=== PATIENT | male | born 1965 | race Caucasian/White ===

== ENCOUNTER 2017-03-13 11:55 | Emergency (ER) | payer OTHER ==
[~2017-03-13] VITALS: Ht 182.9 cm; Wt 159.7 kg
[~2017-03-13 11:55] MED LIST: ASPIR 8181 MG PO; AUGMENTIN 875875 MG PO; FISH OIL CONCEN1 SGL PO; GLIPIZIDE10 MG PO; HYGROTON 25MG T25 MG PO; IBU800 MG PO; KEFLEX500 MG PO; LYRICA75 MG PO; METFORMIN1000 MG PO; PERCOCET 325 MG1 TA2 PO; PRAVASTATIN SOD20 MG PO; TRAMADOL HYDRO200 MG PO; VICODIN5-300 PO; [UNRECOGNIZED DRUG - OTHER] PO
[2017-03-13] MEDS ORDERED: IBUPROFEN800 M1 PO (13:21)
[2017-03-13] MEDS ORDERED: METFORMIN HCL1000 M1 PO (13:21)
[2017-03-13] MEDS ORDERED: GLIPIZIDE10 M2 PO (13:21)
[2017-03-13] MEDS ORDERED: CHLORTHALIDONE25 M1 PO (13:21)
[2017-03-13] MEDS ORDERED: JARDIANCE10 M1 PO (13:22)
[2017-03-13] MEDS ORDERED: PRAVASTATIN SOD40 M2 PO (13:22)
[2017-03-13] MEDS ORDERED: ASPIRIN EC81 M1 PO (13:22)
[2017-03-13] MEDS ORDERED: LYRICA75 M1 PO (13:22)
[2017-03-13] MEDS ORDERED: FISH OIL 1,0001 EAC4 PO (13:23)
[2017-03-13] MEDS ORDERED: CLEOCIN HCL150 M1 PO (13:41)
[2017-03-13] MEDS ORDERED: VICODIN 5-3001 EACH PO (13:41)
--- NOTE | 2017-03-13 13:42 | ED SKIN/ALLERGY COMPLAINT ---
History of Present Illness General Chief Complaint: Skin Rash/ Abcess Stated Complaint: ABCESS ON BACK Source: patient, old records Exam Limitations: no limitations Vital Signs & Intake/Output Vital Signs & Intake/Output Vital Signs Date Time Temp Pulse Resp B/P Pulse O2 O2 Flow FiO2 Ox Delivery Rate 03/13 1446 98.0 82 18 132/88 98 Room Air 03/13 1208 97.6 84 16 125/85 97 Room Air Allergies Coded Allergies: cheese (YELLOW CHEESE - NAUSEA 03/13/17) lovastatin (CRAMPS 03/13/17) simvastatin (CRAMPS 03/13/17) Reconcile Medications Aspirin (Ecotrin*) 81 MG TABLET.DR 1 TAB PO DAILY HEART/BLOOD (Reported) Chlorthalidone 25 MG TABLET 1 TAB PO DAILY BP/DIURETIC (Reported) Clindamycin HCl (Cleocin HCl) 150 MG CAPSULE 1 CAP PO TID abscess Empagliflozin (Jardiance) 10 MG TABLET 1 TAB PO DAILY DM (Reported) Glipizide 10 MG TABLET 2 TAB PO BID DM (Reported) Hydrocodone/Acetaminophen (Vicodin 5-300 MG Tablet) 5 MG-300 MG TABLET 1-2 TAB PO Q6P severe pain Ibuprofen 800 MG TABLET 1 TAB PO Q8H PRN PAIN/INFLAMMATION (Reported) Metformin HCl 1,000 MG TABLET 1 TAB PO BID DM (Reported) [place]-3 Fatty Acids/Fish Oil (Fish Oil 1,000 MG Softgel) (Unknown Strength) CAPSULE (Unknown Dose) PO DAILY SUPPLEMENT (Reported) Pravastatin Sodium 40 MG TABLET 1 TAB PO QPM CHOLESTEROL (Reported) Pregabalin (Lyrica) 75 MG CAPSULE 1 CAP PO BID NEVRE PAIN (Reported) Triage Note: PT STATES HE HAS AN ABCESS ON HIS BACK THAT HE NOTICED 4 DAYS. PT STATES HE WAS TAKING KEFLEX THAT HE HAD AT HOME AND STATES IT ISN'T GETTING BETTER. Triage Nurses Notes Reviewed? yes Onset: Last week Duration: day(s):, constant, continues in ED Timing: recent history Severity: moderate Location: torso Possible Factors: no cause identified No Modifying Factors: none Associated Symptoms: change in skin texture, rash, swelling/mass/lumps HPI: About one week prior to admission patient complains of right mid back abscess that has not responded to antibiotics for one day prior to admission. He denies fever chills nausea vomiting diarrhea abdominal pain chest pain shortness breath headache dysuria bleeding. Past History Travel History Traveled to [place] past 21 day No Medical History Any Pertinent Medical History? see below for history Neurological: NONE EENT: NONE Cardiovascular: hypertension, HIGH CHOLESTEROL DVT Respiratory: NONE Gastrointestinal: NONE Hepatic: NONE Renal: NONE Musculoskeletal: NONE Psychiatric: NONE Endocrine: diabetes Blood Disorders: NONE Cancer(s): NONE METEOROLOGICAL AIDE/Reproductive: NONE History of MRSA: No History of VRE: No History of CDIFF: No Pneumonia Vaccine: 02/01/14 Surgical History Surgical History: RIGHT FOOT SURGERY TOE AMPUTATIONS Psychosocial History Who do you live with Sister Services at Home None What is your primary language P[place] Tobacco Use: Never used ETOH Use: denies use Illicit Drug Use: denies illicit drug use Family History Family History, If Any: MOTHER FH: diabetes mellitus aunty FH: diabetes mellitus Hx Contributory? No Review of Systems Review of Systems Constitutional: Reports: no symptoms. EENTM: Reports: no symptoms. Respiratory: Reports: no symptoms. Cardiovascular: Reports: no symptoms. GI: Reports: no symptoms. Genitourinary: Reports: no symptoms. Musculoskeletal: Reports: no symptoms. Skin: Reports: see HPI, rash. Neurological/Psychological: Reports: no symptoms. Hematologic/Endocrine: Reports: no symptoms. Immunologic/Allergic: Reports: no symptoms. All Other Systems: Reviewed and Negative Physical Exam Physical Exam General Appearance: well developed/nourished, mild distress Head: atraumatic Eyes: Bilateral: PERRL, EOMI. Ears, Nose, Throat: normal pharynx, normal ENT inspection, hearing grossly normal Neck: normal inspection, supple Respiratory: normal breath sounds Cardiovascular: regular rate/rhythm Peripheral Pulses: 4+ carotid (R), 4+ carotid (L) Gastrointestinal: soft, non-tender Back: 5 cm firm indurated erythematous abscess R lateral thoracic area Extremities: normal inspection, normal range of motion, no edema Neurologic/Psych: awake, alert, oriented x 3, normal mood/affect Reflexes: 2+: bicep (R), bicep (L). Skin: intact, rash Skin Problem Location: torso Skin Problem Character: abcess, swelling, tenderness, thickening Lymphatic: no anterior cervical jimmy Progress Differential Diagnosis: abscess/cellulitis, allergic reaction Plan of Care: Orders Procedure Date/time Status TRUNK AREA CULTURE 03/13 1436 Active Microbiology 03/13 1430 TRUNK: Culture & Sensitivity - RECD 04/18 1430 TRUNK: Gram Stain - RECD Departure Departure Time of Disposition: 1340 Disposition: HOME OR SELF CARE Condition: Stable Clinical Impression Primary Impression: Abscess of back Referrals: MARY HAYDEN,KIMBER Quintero. Call for surgical drainage of abscess. PAOLA HAYDEN,Padilla RENO (PCP/Family) Departure Forms: Customer Survey General Discharge Information Prescriptions: Current Visit Scripts Hydrocodone/Acetaminophen (Vicodin 5-300 MG Tablet) 1-2 TAB PO Q6P #20 TAB Clindamycin HCl (Cleocin HCl) 1 CAP PO TID #30 CAP Procedures Incision and Drainage Site: back Blade Size: 10 I & D Procedure: Yes: betadine prep, sterile drapes applied, sterile dressing applied, wick placed.
[2017-03-13 14:46] VITALS: BP 132/88
== END 2017-03-13 15:03 ==
LOC: ERH 11:55
DX: L02.212 Cutaneous abscess of back [any part, except buttock and flank] (principal)
CPT/HCPCS: 87070